=== PATIENT | female | born 1970 | race African-American/Black ===

== ENCOUNTER 2020-07-28 19:49 | Emergency (ER) | payer OTHER, SELFPAY ==
--- NOTE | ~2020-07-28 | XR_ITS ---
XR finger 1st LT min 2V DATE: 07/28/2020 20:13 INDICATION: Elbert a pop one week ago. Generalized left first digit pain. TECHNIQUE: 3 views COMPARISON: None FINDINGS: There is an approximately 7 x 16 mm bony density at the anterior aspect of the interphalang eal joint of the thumb, which may represent a small cortical avulsion fracture, subacute or old, in t he anterior base of the distal phalanx versus accessory ossicle. Recommend clinical correlation for p oint tenderness at this location. No other fracture or dislocation is evident.. IMPRESSION: Subacute or chronic avulsion fracture versus accessory ossicle at the anterior aspect of the interphalangeal joint of the thumb Reviewed, dictated and finalized at location A. TECHNICAL SALES CONSULTANT IMPRESSION: Subacute or chronic avulsion fracture versus accessory ossicle at t he anterior aspect of the interphalangeal joint of the thumb
[2020-07-28 19:53] VITALS: BP 149/83; PULSE 88; RESP 16; TEMP 36.8; O2SAT 98
--- NOTE | 2020-07-28 19:59 | ED.GENADULT ---
HPI - General Adult General Chief complaint: Extremity Injury, Upper Stated complaint: Injury to left thumb Time Seen by Provider: 07/28/20 19:54 Source: patient Mode of arrival: ambulatory Limitations: no limitations History of Present Illness HPI narrative: Patient is a 50-year-old female who presents to emergency department for evaluation of left thumb noting a week ago after lifting a trash can lid felt a pop in the thumb is since had aching pain worse with activity and movement patient denies other injury or complaints presents in no distress has been using a thumb splint Related Data Allergies Allergy/AdvReac Type Severity Reaction Status Date / Time No Known Allergies Allergy Verified 07/28/20 19:50 Review of Systems Review of Systems: All systems reviewed & are unremarkable except as noted in HPI and below PMFSH Past Medical History Medical History (Updated 07/28/20 @ 20:28 by Aidan Dennis PA-C) Hypertension Social History Social History (Updated 07/28/20 @ 20:00 by Aidan Dennis PA-C) Smoking status: Never smoker Exam Narrative: Exam Narrative: GENERAL: Well-appearing, well-nourished, and in no acute distress. HEAD: Normocephalic, atraumatic. EYES: PERRLA and EOMI. EXTREMITIES: Normal range of motion. No edema. Tenderness of the left thumb no deformity noted SKIN: Warm, dry, no rash. NEURO: No focal deficits. Alert and oriented x3. Neurovascularly intact. Capillary refill less than 2 seconds PSYCH: Normal mood and affect. Course Course Emergency Course: Patient with possible thumb fracture placed in thumb spica with orthopedic follow-up Vital Signs Vital signs: Vital Signs Temperature 98.2 F 07/28/20 19:53 Pulse Rate 88 07/28/20 19:53 Respiratory Rate 16 07/28/20 19:53 Blood Pressure 149/83 H 07/28/20 19:53 Pulse Oximetry 98 07/28/20 19:53 Temperature 98.2 F 07/28/20 19:53 Pulse Rate 88 07/28/20 19:53 Respiratory Rate 16 07/28/20 19:53 Blood Pressure 149/83 H 07/28/20 19:53 Pulse Oximetry 98 07/28/20 19:53 Medical Decision Making MDM Narrative Medical decision making narrative: Patients injury or pain is consistent with musculoskeletal etiology. No signs of neurological or vascular compromise on exam. Compartments and tisues are soft without signs of compartment syndrome. Pain is felt appropriate for further evaluation on an outpatient basis. Vital Signs Vital Signs: Vital Signs Temperature 98.2 F 07/28/20 19:53 Pulse Rate 88 07/28/20 19:53 Respiratory Rate 16 07/28/20 19:53 Blood Pressure 149/83 H 07/28/20 19:53 Pulse Oximetry 98 07/28/20 19:53 Temperature 98.2 F 07/28/20 19:53 Pulse Rate 88 07/28/20 19:53 Respiratory Rate 16 07/28/20 19:53 Blood Pressure 149/83 H 07/28/20 19:53 Pulse Oximetry 98 07/28/20 19:53 Discharge Plan Discharge Clinical Impression: Fracture of thumb Patient Disposition: Home, Self-Care Condition: Stable Instructions: Antibiotic Form, Thumb Fracture (ED) Additional Instructions: Follow-up with hand surgeon by phone first thing tomorrow to set up for reevaluation Wear splint with intermittent icing Return if symptoms worsen or concerns or any increase in redness swelling pain or fever over 100.5 Follow patient education sheets Only take medications as directed Prescriptions: New acetaminophen [Tylenol Arthritis Pain] 650 mg tablet extended release 650 mg PO Q12H PRN (Reason: pain) Qty: 7 RF: 0 Follow-up/Referrals: Kristyn,HEATHER Stiles [Primary Care Provider] - Juan Ramon Damian MD [Physician] - Stand Alone Forms: Work/School Release IP
== END 2020-07-28 21:12 | disposition home or self-care (01) ==
LOC: ANHED 20:03
PROVIDERS: Emergency Provider Emergency Medicine; PCP Registered Nurse
DX: S62.502A Fracture of unspecified phalanx of left thumb, initial encounter for closed fracture (principal); I10 Essential (primary) hypertension; X50.9XXA Other and unspecified overexertion or strenuous movements or postures, initial encounter
CPT/HCPCS: 29125; 73140; 99284; A4565

== ENCOUNTER 2020-08-19 13:38 | Emergency (ER) | payer OTHER, SELFPAY ==
[2020-08-19 14:36] VITALS: BP 159/93; PULSE 76; RESP 18; TEMP 36.9; O2SAT 100
--- NOTE | 2020-08-19 16:48 | ED.GENADULT ---
HPI - General Adult General Chief complaint: Dental/Oral Stated complaint: abcess to L lower jaw Time Seen by Provider: 08/19/20 16:31 Source: patient History of Present Illness HPI narrative: Patient is a 50 y/o female complaining of left lower dental pain and left jaw pain starting 2 days ago. She states that she was taking Amoxil prescribed her PCP. However, it's not helping. She rates her pain as 10/10 yesterday, but 6/10 today. She has no fever or chills. Related Data Home Medications Medication Instructions Recorded Confirmed amoxicillin 08/19/20 08/19/20 atenolol 08/19/20 chlorhexidine gluconate 08/19/20 hydrochlorothiazide 08/19/20 Allergies Allergy/AdvReac Type Severity Reaction Status Date / Time No Known Allergies Allergy Verified 08/19/20 16:22 Review of Systems Constitutional: Constitutional: Denies chills, Denies fever(s), Denies headache(s) and Denies weakness Eyes: Eyes: Denies blurry vision ENT: Reports dental pain, Denies headache(s) and Denies neck pain Cardiovascular: Cardiovascular: Denies chest pain and Denies dyspnea Respiratory: Respiratory: Denies cough and Denies dyspnea Gastrointestinal: Gastrointestinal: Denies abdominal pain, Denies diarrhea, Denies nausea and Denies vomiting Genitourinary: Genitourinary: Denies hematuria and Denies dysuria Musculoskeletal: Musculoskeletal: Denies back pain and Denies neck pain Neurologic: Denies headache(s) and Denies weakness [facility] Past Medical History Medical History Hypertension Social History Social History Smoking status: Never smoker Exam Const: General: no acute distress and well developed Orientation/consciousness: oriented to person, oriented to place, oriented to time and patient oriented x3 HENMT: Head: normocephalic Ears: external ears normal General nose exam: Normal external nose present Face and sinus: edema (jaw swelling) on the left Teeth and gingiva: poor dentition and other (left lower molar chipped tooth) Eyes: General: appearance normal, both eyes and all related structures Conjunctivae: conjunctivae normal Neck: Neck: normal visual inspection and full ROM Chest: Chest palpation & inspection: normal inspection of the chest and no tenderness Resp: Effort & Inspection: normal respiratory effort Auscultation: clear to auscultation bilaterally Cardio: Rate: regular rate Rhythm: regular rhythm GI: GI Palp: No abdominal tenderness and Yes Soft to palpation Skin: General skin exam: normal color and turgor normal Neuro: General: oriented to person, oriented to place, oriented to time and patient oriented x3 Cognition (Neuro): normal cognition Extrem: General: normal to inspection, full ROM and no pedal edema Psych: Appearance: grossly normal Mental Status: mental status grossly normal Affect: normal affect Course Vital Signs Vital signs: Vital Signs Temperature 36.9 C 08/19/20 14:36 Pulse Rate 76 08/19/20 14:36 Respiratory Rate 18 08/19/20 14:36 Blood Pressure 159/93 H 08/19/20 14:36 Pulse Oximetry 100 08/19/20 14:36 Temperature 36.9 C 08/19/20 14:36 Pulse Rate 76 08/19/20 14:36 Respiratory Rate 18 08/19/20 14:36 Blood Pressure 159/93 H 08/19/20 14:36 Pulse Oximetry 100 08/19/20 14:36 Medical Decision Making Vital Signs Vital Signs: Vital Signs Temperature 36.9 C 08/19/20 14:36 Pulse Rate 76 08/19/20 14:36 Respiratory Rate 18 08/19/20 14:36 Blood Pressure 159/93 H 08/19/20 14:36 Pulse Oximetry 100 08/19/20 14:36 Temperature 36.9 C 08/19/20 14:36 Pulse Rate 76 08/19/20 14:36 Respiratory Rate 18 08/19/20 14:36 Blood Pressure 159/93 H 08/19/20 14:36 Pulse Oximetry 100 08/19/20 14:36 Discharge Plan Discharge Clinical Impression: Toothache Patient Disposition: Home, Self-Care Condition: Sta
== END 2020-08-19 17:05 | disposition home or self-care (01) ==
PROVIDERS: Emergency Provider Emergency Medicine; PCP Registered Nurse
DX: K08.89 Other specified disorders of teeth and supporting structures (principal); I10 Essential (primary) hypertension
CPT/HCPCS: 99283

== ENCOUNTER 2021-08-14 19:27 | Emergency (ER) | payer OTHER, SELFPAY ==
--- NOTE | ~2021-08-14 | XR_ITS ---
EXAMINATION: XR chest 2V DATE: 08/14/2021 19:53 INDICATION: Left chest pain. TECHNIQUE: Frontal and lateral views of the chest were obtained. COMPARISON: None. FINDINGS: The chest demonstrates clear lungs without pneumonia, pleural effusion, or pneumothorax. Th e heart size is normal. IMPRESSION: 1. No acute cardiopulmonary disease. Reviewed, dictated and finalized at location E. WELDER
--- NOTE | 2021-08-14 19:30 | ECG_ITS ---
Measurements Intervals [place] Rate: 55 P: 40 MD: 180 QRS: 17 QRSD: 97 T: 15 QT: 373 QTc: 358 Interpretive Statements SINUS BRADYCARDIA BORDERLINE T WAVE ABNORMALITY- INFERIOR LEADS BASELINE ARTIFACT- I, II, III, AVR, V3-V4 BORDERLINE ECG Electronically Signed On 08-14-2021 20:47:36 PRE SALES TECHNICAL CONSULTANT by Jean Kapoor D.O.
[2021-08-14 19:34] VITALS: BP 171/87; PULSE 57; RESP 16; TEMP 36.4; O2SAT 100
[2021-08-14 20:13] VITALS: BP 156/82; PULSE 47; RESP 18; O2SAT 100
[2021-08-14] MEDS: ASPIRIN 81 MG CHEWABLE TABLET 324 MG PO (20:17)
[2021-08-14 20:18] LABS: Basophils Percent Auto 0.3 % (0.2-1.2); Eosinophils Absolute Auto 0.6 K/mm3 (0-0.3); Eosinophils Percent Auto 4.8 % (0-4.4); Hemoglobin 12.6 g/dL (12.0-15.0); Immature Granulocyte Absolute 0.04 K/mm3 (0.00-0.031); Immature Granulocyte Percent A 0.3 % (0-0.5); Lymphocytes Percent Auto 35.7 % (18.3-44.2); Mean Corpuscular HGB Conc 31.5 g/dl (32-36); Mean Corpuscular Volume 82.6 fl (80-100); Mean Platelet Volume 12.5 fl (7.4-10.4); Neutrophils Absolute Auto 6.6 K/mm3 (1.3-6.7); Neutrophils Percent Auto 50.9 % (45.5-73.1); Platelet Count Result 209 k/mm3 (150-375); Red Blood Count 4.84 M/mm3 (4.2-5.4); Red Cell Distribution Width 13.2 % (11.5-14.5); White Blood Count 12.9 K/mm3 (4.5-10.0)
[2021-08-14 20:27] LABS: Prothrombin Time 12.5 Seconds (11.1-14.7)
[2021-08-14 20:30] LABS: Alanine Aminotransferase 17 U/L (4-35); Albumin Level 4.2 g/dL (3.5-5.1); Alkaline Phosphatase 88 U/L (38-126); Anion Gap 7 mmol/L (8-16); Aspartate Amino Transferase 28 U/L (14-36); Bilirubin,Total 0.4 mg/dL (0.2-1.3); Blood Urea Nitrogen 8 mg/dL (7-17); Calcium 9.3 mg/dL (8.4-10.2); Carbon Dioxide 24 mmol/L (22-30); Chloride 109 mmol/L (98-107); Estimated CRCL calculation 68 ml/min; Estimated Glomerular Filt Rate > 60; Glucose 106 mg/dL (65-110); Lipase 236 U/L (23-300); Potassium 3.3 mmol/L (3.4-5.0); Sodium 140 mmol/L (137-145)
[2021-08-14 20:31] LABS: Partial Thromboplastin Time 34.3 SECONDS (22.3-36.8)
[2021-08-14 20:42] LABS: Troponin I < 0.012 ng/mL (0.000-0.034)
--- NOTE | 2021-08-14 20:56 | ED.GENADULT ---
HPI - General Adult General Chief complaint: Chest Pain Stated complaint: chest pain for 2 weeks Time Seen by Provider: 08/14/21 19:40 History of Present Illness HPI narrative: Patient is a 51-year-old female who presents ER with chest pain. Reports its been occurring for the last 3 to 4 weeks. She saw her PCP 2 weeks ago who ordered an EKG, chest x-ray, and outpatient stress test. Patient has not scheduled any of these test. She reports that pain across her anterior chest when she is lifting or pushing something. The last 15 minutes and go away. She has approximately 2 times a day. She has not had the pain in more than 24 hours. No fevers or chills or sweats. Unsure if it is improved with taking anti-inflammatories. No nausea/vomiting/cough. When asked if she is short of breath she says sometimes but cannot describe situation which she becomes dyspneic. Related Data Home Medications Medication Instructions Recorded Confirmed amoxicillin 08/19/20 08/19/20 atenolol 08/19/20 chlorhexidine gluconate 08/19/20 hydrochlorothiazide 08/19/20 Allergies Allergy/AdvReac Type Severity Reaction Status Date / Time No Known Allergies Allergy Verified 08/14/21 19:37 Review of Systems Review of Systems: All systems reviewed & are unremarkable except as noted in HPI and below Constitutional: Constitutional: Denies chills, Denies fever(s) and Denies weakness ENT: Denies nasal congestion and Denies sore throat Cardiovascular: Cardiovascular: Reports chest pain, Denies rapid heart rate and Denies radiating jaw, neck or arm pain Respiratory: Respiratory: Denies cough, Reports dyspnea and Denies wheezing Gastrointestinal: Gastrointestinal: Denies abdominal pain, Denies diarrhea, Denies nausea and Denies vomiting Musculoskeletal: Musculoskeletal: Denies arthralgias, Denies joint swelling and Denies muscle cramps PMFSH Past Medical History Medical History (Updated 08/14/21 @ 21:04 by Miguel Duong MD) Hypertension Surgical History Surgical History (Updated 08/14/21 @ 21:00 by Miguel Duong MD) No pertinent past surgical history Family History Family History (Updated 08/14/21 @ 21:00 by Miguel Duong MD) Father Acute myocardial infarction, Onset Age: 70 Social History Social History Smoking status: Never smoker Exam Narrative: GENERAL: Well-appearing, well-nourished, and in no acute distress. HEAD: Normocephalic, atraumatic. EYES: PERRL and EOMI. CHEST: Clear to auscultation. No respiratory distress. HEART: Regular rate and rhythm. No murmur heard. Normal peripheral pulses. ABDOMEN: Soft, nontender, nondistended EXTREMITIES: Normal range of motion. No edema. SKIN: Warm, dry, no rash. NEURO: Alert and oriented x3. PSYCH: Normal mood and affect. Course Vital Signs Vital signs: Vital Signs Temperature 97.6 F 08/14/21 19:34 Pulse Rate 57 L 08/14/21 19:34 Respiratory Rate 16 08/14/21 19:34 Blood Pressure 171/87 H 08/14/21 19:34 Pulse Oximetry 100 08/14/21 19:34 Temperature 97.6 F 08/14/21 19:34 Pulse Rate 47 L 08/14/21 20:13 Respiratory Rate 18 08/14/21 20:13 Blood Pressure 156/82 H 08/14/21 20:13 Pulse Oximetry 100 08/14/21 20:13 Medical Decision Making Vital Signs Vital Signs: Vital Signs Temperature 97.6 F 08/14/21 19:34 Pulse Rate 57 L 08/14/21 19:34 Respiratory Rate 16 08/14/21 19:34 Blood Pressure 171/87 H 08/14/21 19:34 Pulse Oximetry 100 08/14/21 19:34 Temperature 97.6 F 08/14/21 19:34 Pulse Rate 47 L 08/14/21 20:13 Respiratory Rate 18 08/14/21 20:13 Blood Pressure 156/82 H 08/14/21 20:13 Pulse Oximetry 100 08/14/21 20:13 Lab Data Result diagrams: 08/14/21 20:10 08/14/21 20:10 Labs: Lab Results 08/14/21 08/14/21 08/14/21 Range/Units 20:10 20:10 20:10 WBC Pending RBC Pending Hgb Pending
[2021-08-14 21:26] VITALS: BP 152/74; PULSE 50; RESP 16; O2SAT 100
== END 2021-08-14 21:27 | disposition home or self-care (01) ==
PROVIDERS: Emergency Medicine; Emergency Provider Emergency Medicine; PCP Registered Nurse
DX: R07.89 Other chest pain (principal); I10 Essential (primary) hypertension; R00.1 Bradycardia, unspecified; R94.31 Abnormal electrocardiogram [ECG] [EKG]
CPT/HCPCS: 36415; 71046; 80053; 83690; 84484; 85025; 85610; 85730; 93005; 99284; A9270

== ENCOUNTER 2022-06-29 16:46 | Observation (INO) | payer OTHER, SELFPAY ==
[2022-06-29] VITALS (27 sets, daily range): BP systolic 126–152; BP diastolic 63–101; PULSE 57–80; RESP 12–22; TEMP 36.2–36.9; O2SAT 97–100
--- NOTE | ~2022-06-29 | NM_ITS ---
EXAMINATION: NM jeannie stress w perfusion DATE: 06/30/2022 14:08 INDICATION: Chest pain TECHNIQUE: Rest images were obtained following intravenous administration of 9.4 mCi Tc99m tetrofosmi n (Myoview). The patient was infused intravenously with Lexiscan (Regadenoson). Then, 30.6 mCi Tc99m tetrofosmin (Myoview) was administered intravenously, and stress images were obtained. Data was recon structed into short axis and horizontal and vertical long axis SPECT images. Gated SPECT images were also obtained. COMPARISON: None. FINDINGS: There is no definite reversible or fixed perfusion abnormality to suggest ischemia or infar ction. There is normal left ventricular chamber size, wall motion and ejection fraction. Left ventr icular ejection fraction measures >70%. IMPRESSION: 1. Normal myocardial perfusion at rest and during stress. 2. Left ventricular ejection fraction measuring >70%. Reviewed, dictated and finalized at location A. HER EDUCATION DIRECTOR
--- NOTE | ~2022-06-29 | XR_ITS ---
EXAMINATION: XR chest 2V Exam Date/Time: 06/29/2022 17:25 STAFF TECHNOLOGIST HISTORY: chest pain left side into left arm Comparison: 08/14/2021. RESULT: Lines, tubes, and devices: None. Lungs and pleura: No focal consolidation, pneumothorax, or effusion. Chronic appearing bronchiolitic changes. Cardiomediastinal silhouette: Stable. Other: No acute osseous or upper abdominal finding. IMPRESSION: No acute cardiopulmonary process. Reviewed, dictated and finalized at location K. F TECHNOLOGIST
--- NOTE | 2022-06-29 16:52 | ECG_ITS ---
Measurements Intervals [place] Rate: 59 P: 38 NM: 157 QRS: 6 QRSD: 90 T: 30 QT: 360 QTc: 358 Interpretive Statements SINUS BRADYCARDIA NONSPECIFIC T-WAVE ABNORMALITY BORDERLINE ECG COMPARED TO ECG 08/14/2021 19:34:27 T-WAVE ABNORMALITY NOW PRESENT Electronically Signed On 06-29-2022 18:09:31 THREAT ANALYST by Negro Leon M.D.
[2022-06-29 17:16] LABS: Basophils Absolute Auto 0.1 K/mm3 (0.0-0.1); Basophils Percent Auto 0.3 % (0.2-1.2); Eosinophils Absolute Auto 0.3 K/mm3 (0-0.3); Eosinophils Percent Auto 1.7 % (0-4.4); Hematocrit 42.6 % (37.0-47.0); Hemoglobin 13.4 g/dL (12.0-15.0); Immature Granulocyte Absolute 0.07 K/mm3 (0.00-0.031); Immature Granulocyte Percent A 0.4 % (0-0.5); Lymphocytes Absolute Auto 4.31 K/mm3 (0.9-3.2); Lymphocytes Percent Auto 27.6 % (18.3-44.2); Mean Corpuscular HGB Conc 31.5 g/dl (32-36); Mean Corpuscular Hemoglobin 26.1 pg (26-34); Mean Platelet Volume 12.7 fl (7.4-10.4); Monocytes Absolute Auto 1.2 K/mm3 (0.1-0.6); Monocytes Percent Auto 7.5 % (2.6-8.5); Neutrophils Absolute Auto 9.7 K/mm3 (1.3-6.7); Neutrophils Percent Auto 62.5 % (45.5-73.1); Platelet Count Result 222 k/mm3 (150-375); Red Blood Count 5.13 M/mm3 (4.2-5.4); Red Cell Distribution Width 13.2 % (11.5-14.5); White Blood Count 15.6 K/mm3 (4.5-10.0)
[2022-06-29 17:25] LABS: INR 1.1; Prothrombin Time 13.3 Seconds (11.1-14.7)
[2022-06-29 17:26] LABS: Partial Thromboplastin Time 32.1 SECONDS (22.3-36.8)
[2022-06-29 17:29] LABS: Alanine Aminotransferase 23 U/L (6-35); Albumin Level 4.7 g/dL (3.5-5.1); Alkaline Phosphatase 89 U/L (38-126); Anion Gap 9 mmol/L (8-16); Aspartate Amino Transferase 32 U/L (14-36); Bilirubin,Total 0.9 mg/dL (0.2-1.3); Blood Urea Nitrogen 21 mg/dL (7-17); Carbon Dioxide 25 mmol/L (22-30); Chloride 107 mmol/L (98-107); Estimated CRCL calculation 78 ml/min; Estimated Glomerular Filt Rate > 60; Glucose 94 mg/dL (65-110); Lipase 79 U/L (23-300); Potassium 3.9 mmol/L (3.4-5.0); Sodium 141 mmol/L (137-145)
[2022-06-29 17:41] LABS: Troponin I < 0.012 ng/mL (0.000-0.034)
--- NOTE | 2022-06-29 19:14 | PC.NURSE ---
Patient report given to TEE Shin. All questions answered and care of patient transferred.
[2022-06-29 20:26] LABS: Troponin I < 0.012 ng/mL (0.000-0.034)
--- NOTE | 2022-06-29 20:41 | ED.CHESTPAIN ---
HPI - Chest Pain General Chief Complaint: Chest Pain Stated Complaint: chest pain Time Seen by Provider: 06/29/22 19:07 History of Present Illness HPI narrative: Patient is a 52-year-old female who presents ER with chest pain. Reports its been intermittent over the last year. She had seen her primary care doctor in July and they given her a referral to a manager store for stress test. Patient has been unable to schedule appointment. She follow-up with her primary care doctor again last month and they again issued her the referral. She reports in the last week her symptoms of change and that they are becoming more frequent and she is now having discomfort into her left shoulder with tingling in her left arm. 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 She reports they will last for approximately 10 minutes. Symptoms improved with resting. She also reports some occasional improvement in her left shoulder discomfort with Tylenol. She has known no known history of heart disease. She has no diaphoresis or nausea when this occurs. Related Data Home Medications Medication Instructions Recorded Confirmed atenolol 25 mg tablet 25 mg PO DAILY 08/19/20 06/30/22 atorvastatin 20 mg tablet 20 mg PO DAILY 06/30/22 06/30/22 cyclobenzaprine 10 mg tablet 10 mg PO BID 06/30/22 06/30/22 multivit with minerals-iron 18 1 tablet PO DAILY 06/30/22 06/30/22 mg-folic ac 400 mcg-vit K 25 mcg tablet (Adults Multivitamin) Allergies Allergy/AdvReac Type Severity Reaction Status Date / Time No Known Allergies Allergy Verified 08/14/21 19:37 Review of Systems Review of Systems: All systems reviewed & are unremarkable except as noted in HPI and below Constitutional: Constitutional: Denies chills, Denies fatigue and Denies fever(s) ENT: Denies nasal congestion and Denies sore throat Cardiovascular: Cardiovascular: Reports chest pain, Denies rapid heart rate and Reports radiating jaw, neck or arm pain Respiratory: Respiratory: Denies cough and Denies dyspnea Gastrointestinal: Gastrointestinal: Denies abdominal pain, Denies nausea and Denies vomiting Musculoskeletal: Musculoskeletal: Denies arthralgias, Denies joint swelling and Denies muscle cramps Comments: Left shoulder pain. Neurologic: Denies syncope and Denies headache(s) Comments: Paresthesias PMFSH Past Medical History Medical History (Updated 06/30/22 @ 03:42 by Miguel Duong MD) Hypertension Surgical History Surgical History (Updated 08/14/21 @ 21:00 by Miguel Duong MD) No pertinent past surgical history Family History Family History (Updated 08/14/21 @ 21:00 by Miguel Duong MD) Father Acute myocardial infarction, Onset Age: 70 Social History Social History Smoking status: Never smoker Alcohol intake: never Substance use: current Substance use type: does not use Lack of Transportation: No Lack of Food: Never True Current Housing: I Have Housing Concerned About Future Housing: No Difficulty Paying Gas/Electric Bills: No Difficulty Paying for Meds: No Currently Unemployed: No Education: Decline to Answer Difficulty w/ Childcare or Family Care: No Spiritual care concerns: No Exam Narrative: GENERAL: Well-appearing, well-nourished, and in no acute distress. HEAD: Normocephalic, atraumatic. EYES: PERRL and EOMI. CHEST: Clear to auscultation. No respiratory distress. HEART: Regular rate and rhythm. Normal peripheral pulses. ABDOMEN: Soft, nontender, nondistended. Back: Mild discomfort over the left trapezius without palpable spasm. No midline tenderness of the T/L-spine. Mild paraspinal right thoracic discomfort left side. EXTREMITIES: Normal range of motion. No edema. SKIN: Warm, dry, no rash. NEURO: Alert and oriented x3. PSYCH: Normal mood and affect. Course Course Emergency Course: Patient resting comfortably. Discus
[2022-06-29 22:04] LABS: Influenza A QL RT-PCR Negative (Negative); Influenza B QL RT-PCR Negative (Negative); SARS-CoV-2 RNA PCR Negative
--- NOTE | 2022-06-29 23:05 | PC.NURSE ---
IV infilrated. Attempted IV x3 sticks. Unable to obtain. Report given to Rupal OLIVEIRA
--- NOTE | 2022-06-29 23:21 | ADMGEN ---
This patient, Maddie Smith, was admitted to IMU Room 203-01. Patient/family oriented to hospital policies and general routines including ID bracelet, bed and alarms, visiting hours, pain management, procedures, bathroom and other care routines, personal items, smoking policy, room service/diet, and visiting hours. Information on how to activate the Rapid Response Team has been discussed. Patient/Family are encouraged to report perceived risks to care and to ask questions if they do not understand what they are told or what they should do.
[2022-06-30] VITALS (10 sets, daily range): BP systolic 108–133; BP diastolic 68–76; PULSE 55–103; RESP 16–23; TEMP 36.3–36.6; O2SAT 99–100
[2022-06-30 00:09] LABS: Troponin I < 0.012 ng/mL (0.000-0.034)
[2022-06-30] MEDS: HYDROcodone/acetaminophen (*CRX) 5-325 MG TABLET 1 TAB PO (08:45)
--- NOTE | 2022-06-30 10:08 | EST_ITS ---
Patient Info Name: Maddie Smith Age: 52 years : 1970 Gender: Female Ht: 62 in Wt: 229 lbs BSA: 2.19 m2 HR: 55 bpm BP: 113 / 54 mmHg Heart Rhythm: Sinus Rhythm Exam Date: 06/30/2022 1:13 PM Exam Location: [facility] Stress Patient Status: Inpatient Admit Date: 06/29/2022 Staff Ordering Physician: Negro Leon MD Attending Provider: Shahzad Burroughs MD Exercise Technologist: Lucy Soto CT Exercise Physician: Negro Leon MD Exam Type: CA stress jeannie w NM Study Info Indications R07.9 - Chest pain, unspecified A regadenoson stress test was performed. Summary 1. No abnormal ST/T wave changes with Lexiscan. 2. No arrhythmias were observed during the examination. 3. No chest discomfort with stress test. 4. Please correlate with nuclear medicine images, reported separately. Protocol: Lexiscan Stress ECG Details Stage: REST Duration (min): 1 min : 6 sec HR (bpm): 55 SBP (mmHg): 118 DBP (mmHg): 59 Stage: REST Duration (min): 7 min : 59 sec HR (bpm): 60 SBP (mmHg): 118 DBP (mmHg): 59 Stage: STAGE 1 Duration (min): 1 min : 0 sec HR (bpm): 95 SBP (mmHg): 113 DBP (mmHg): 54 Stage: RECOVERY Duration (min): 1 min : 0 sec HR (bpm): 88 SBP (mmHg): 113 DBP (mmHg): 54 Stage: RECOVERY Duration (min): 2 min : 0 sec HR (bpm): 86 SBP (mmHg): 113 DBP (mmHg): 54 Stage: RECOVERY Duration (min): 3 min : 0 sec HR (bpm): 78 SBP (mmHg): 134 DBP (mmHg): 59 Stage: RECOVERY Duration (min): 3 min : 6 sec HR (bpm): 76 SBP (mmHg): 134 DBP (mmHg): 59 Rest HR: 60 bpm Peak HR: 95 bpm Rest Sys BP: 118 mmHg Peak Sys BP: 134 mmHg Max Pred HR: 166 bpm % Max Pred HR: 57 % Target HR: 141 bpm Max RPP: 12,730 bpm*mmHg BP Response: Normal blood pressure response Termination Reason: Completed protocol Cardiac Symptoms: None Total Time: 1 min : 0 sec Rest Mcdonald BP: 59 mmHg Peak Mcdonald BP: 59 mmHg Total Dose: 0.4 mg Resting ECG Sinus bradycardia. Stress ECG No abnormal ST/T wave changes with Lexiscan. Arrhythmias No arrhythmias were observed during the examination. Report Signatures
--- NOTE | 2022-06-30 11:39 | PM.IMHP ---
H&P: HPI History of Present Illness Date/Time: Date of service:06/30/22 11:39 Short-stay history and physical summary: Chief Complaint: worsening chest and shoulder pain Narrative: Patient is a pleasant 52-year-old female with a past medical history significant hypertension, hyperlipidemia who presented to the emergency department with complaints of worsening left central chest pain radiating to her left shoulder and neck over the past 9 months. Patient states she would experience the symptoms large on a daily basis lasting 6-7 minutes then resolved. Chest pain described as a sharp pain left-sided that would radiate to her left shoulder and neck with associated tingling in her shoulder. She generally denies associated nausea vomiting diaphoresis or shortness of breath. She states more recently she had been experiencing more frequent and at times more intense episodes of chest pain off and on over the course of 2 hours. She denied clearly identified aggravating or relieving factors. 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 She denied associated exacerbation with deep breathing, coughing or certain movements. She would however note increased discomfort in her neck lying on her left side. She was told to follow-up with Cardiology and obtained a stress test many months ago but she failed to do so. She presented to the ER with same complaints of chest pain in August with negative troponin and unremarkable EKG. She has ruled out for myocardial infarction with serial negative enzymes and EKGs unremarkable without ischemic changes. She is currently pain-free and has no other specific complaints at this time. Imaging is unremarkable. She has no history of DVT/PE, bleeding complication, recent trauma, illnesses, fevers or chills. She denies any prior known history of CAD, myocardial infarction, CHF, JJ. She has been compliant with medications. She has no other complaints at this time and is asymptomatic. She denies orthopnea or PND. 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 She does admit to taking Tylenol which has helped and would give her some relief for several hours in her symptoms would return. Review of Systems Review of Systems: Remainder of the review of systems is otherwise negative aside from that noted in the HPI. All systems reviewed & are unremarkable except as noted in HPI and below Constitutional: Constitutional: Reports as per HPI and Reports no additional constitutional complaints Eyes: Eyes: Reports as per HPI and Reports no additional eye complaints ENT: Reports system reviewed and no additional complaints, except as documented and Reports as per HPI Cardiovascular: Cardiovascular: Reports as per HPI and Reports no additional cardiovascular complaints Respiratory: Respiratory: Reports as per HPI and Reports no additional respiratory complaints Gastrointestinal: Gastrointestinal: Reports as per HPI and Reports no additional gastrointestinal complaints Genitourinary: Genitourinary: Reports as per HPI Musculoskeletal: Musculoskeletal: Reports no additional musculoskeletal complaints and Reports as per HPI Integumentary/Breasts: Skin/Breast: Reports system reviewed and no additional complaints, except as docu and Reports as per HPI Neurologic: Reports system reviewed and no additional complaints, except as documented and Reports as per HPI Psychiatric: Psychiatric: Reports no additional psychiatric complaints and Reports as per HPI Endocrine: Endocrine: Reports no additional endocrine complaints and Reports as per HPI Hematologic/Lymphatic: Hematologic/Lymphatic: Reports no additional hematologic/lymphatic complaints and Reports as per HPI Allergic/Immunologic: Allergic/Immunolog
== END 2022-06-30 16:52 | disposition home or self-care (01) ==
LOC: ANHED 19:07 → ANHIMU 22:54
PROVIDERS: Family Medicine; Admitting Provider Internal Medicine Cardiovascular Disease; Emergency Provider Emergency Medicine; PCP Registered Nurse; Visit Provider Internal Medicine Cardiovascular Disease
DX: R07.9 Chest pain, unspecified (principal); M25.512 Pain in left shoulder; R20.2 Paresthesia of skin; I10 Essential (primary) hypertension; E78.2 Mixed hyperlipidemia; R00.1 Bradycardia, unspecified; M54.2 Cervicalgia; R94.31 Abnormal electrocardiogram [ECG] [EKG]; Z20.822 Contact with and (suspected) exposure to COVID-19; Z79.899 Other long term (current) drug therapy; Z82.49 Family history of ischemic heart disease and other diseases of the circulatory system
CPT/HCPCS: 36415; 71046; 78452; 80053; 83690; 84484; 85025; 85610; 85730; 87636; 93005; 93017; 99285; A9270; A9502; G0378; G0379; J2785

== ENCOUNTER 2024-07-30 14:21 | Emergency (ER) | payer BC, SELFPAY ==
[2024-07-30 14:26] VITALS: BP 131/64; PULSE 80; RESP 16; TEMP 36.9; O2SAT 100
[2024-07-30 14:59] LABS: EDCOVIDSCREEN Negative (Negative); EDINFLUASCREEN Negative (Negative); EDINFLUBSCREEN Negative (Negative)
--- NOTE | 2024-07-30 15:15 | ED.NAVMDI ---
HPI - Nausea/Vomiting/Diarrhea General Chief complaint: Nausea/Vomiting/Diarrhea Stated complaint: n/v/d Time Seen by Provider: 07/30/24 15:03 Source: patient and RN notes reviewed Mode of arrival: ambulatory Limitations: no limitations History of Present Illness HPI Narrative: Patient presents today complaining of nausea, vomiting, diarrhea, body aches, chills. Symptoms began last night. She vomited 6 times last night and twice today, last at 10:30 a.m. this morning. She had 5 episodes of loose diarrhea last night and 1 today. Denies blood or mucus in her stool. She has been able to keep down some fluids since her last vomiting episode. Denies abdominal pain, but does report some intermittent cramping. Denies fever. She has tried no [id number] medication for symptoms prior to arrival. States she works in a [employer]. Related Data Home Medications ?Medication ?Instructions ?Recorded ?Confirmed ?Last Taken ?Type atenolol 25 mg tablet 25 mg PO DAILY 08/19/20 06/30/22 Unknown History atorvastatin 20 mg tablet 20 mg PO DAILY 06/30/22 06/30/22 Unknown History cyclobenzaprine 10 mg tablet 10 mg PO BID 06/30/22 06/30/22 Unknown History multivit with minerals-iron 18 1 tablet PO DAILY 06/30/22 06/30/22 Unknown History mg-folic ac 400 mcg-vit K 25 mcg tablet (Adults Multivitamin) Allergies Allergy/AdvReac Type Severity Reaction Status Date / Time No Known Allergies Allergy Verified 07/30/24 14:43 Review of Systems Review of Systems: CONSTITUTIONAL: + body aches, chills EYES: Denies visual changes, redness, or discharge. ENT: Denies rhinorrhea, congestion, sore throat, or otalgia. CARDIOVASCULAR: Denies chest pain, palpitations, or edema. RESPIRATORY: Denies cough or dyspnea. GASTROINTESTINAL: Denies abdominal pain. + nausea, vomiting, diarrhea, abdominal cramping GENITOURINARY: Denies dysuria or hematuria. SKIN: Denies rash, itching, or wounds. MUSCULOSKELETAL: Denies back pain, joint pain, or myalgia. NEUROLOGIC: Denies headache, numbness, tingling, or weakness. PSYCH: Denies depression or anxiety. [facility] Past Medical History Medical History Mixed hyperlipidemia Hypertension Surgical History Surgical History No pertinent past surgical history Family History Family History Father Acute myocardial infarction, Onset Age: 70 Social History Social History Smoking status: Never smoker Alcohol intake: never Substance use: current Substance use type: does not use Lack of Transportation: No Lack of Food: Never True Current Housing: I Have Housing Concerned About Future Housing: No Difficulty Paying Gas/Electric Bills: No Difficulty Paying for Meds: No Currently Unemployed: No Education: Decline to Answer Difficulty w/ Childcare or Family Care: No Spiritual care concerns: No Comments At time of signature, I have reviewed and agree with nursing past medical, surgical, social and family history unless otherwise noted. Please see nursing chart for further information. There is no relevant family history pertinent to the presenting complaint Exam Narrative: GENERAL: Well-appearing, well-nourished, and in no acute distress. HEAD: Normocephalic, atraumatic. EYES: EOMI. No redness or drainage. Conjunctivae normal. ENT: Mucous membranes pink and moist. NECK: Normal AROM. CHEST: No respiratory distress. Clear to auscultation. HEART: Regular rate and rhythm. No murmur appreciated. Normal peripheral pulses. ABDOMEN: Soft, nontender, nondistended, normal active bowel sounds. EXTREMITIES: Normal range of motion. No edema. SKIN: Warm, dry, no rash. Capillary refill normal. Normal skin turgor. NEURO: No focal deficits. Alert and oriented x3. Gait steady. PSYCH: Normal affect. No signs of depression or anxiety. Course Course Level of Care: Express Care Visit Vital Signs Vital signs: Vital Signs Temperature 98.5 F 07/30/24 14:26 Pulse Rate 80 07/30/24 14:26 Respiratory Rate 16 07/30/24 14:26 Blood Pressure 131/64 07/30/24 14:26 Pulse Oximetry 100 07/30/24 14:26 Oxygen Delivery Room Air 07/30/24 14:26 Temperature 98.5 F 07/30/24 14:26 Pulse Rate 80 07/30/24 14:26 Respiratory Rate 16 07/30/24 14:26 Blood Pressure 131/64 07/30/24 14:26 Pulse Oximetry 100 07/30/24 14:26 Oxygen Delivery Room Air 07/30/24 14:26 Reviewed MDM - Nausea/Vomiting/Diarrhea MDM Narrative Medical decision making narrative: Influenza and COVID-19 negative. Symptoms have improved with dose of Zofran here at [facility] today. She is taking fluids by mouth without problems. Prescription of Zofran sent pharmacy. Symptoms likely viral in etiology. Discussed [id number] medication use and duration of illness. Anticipatory guidance given. ED precautions given. Differential Diagnosis Differential diagnosis: Likely food poisoning, gastroenteritis, dehydration and other (Viral syndrome) Lab Data Attestation: I reviewed the patient's lab results. Labs: Lab Results 07/30/24 Range/Units 14:40 POC Influenza A Ag Negative (Negative) POC Influenza B Ag Negative (Negative) POC SARS CoV-2 Ag Negative (Negative) Critical Care Time Critical Care Time Critical Care Time: No Discharge Plan Discharge Clinical Impression: Nausea vomiting and diarrhea Patient Disposition: Home, Self-Care Condition: Stable Instructions: Acute Nausea and Vomiting (DC), Acute Diarrhea (ED) Additional Instructions: Your influenza and COVID-19 tests are negative today. Your symptoms are likely due to a virus and should resolve on their own within a week. Take the Zofran as needed for nausea and vomiting. Rest and drink plenty of fluids. If you are unable to keep down fluids, even with the medication, or you notice blood or mucus in your stool, please go to the ER immediately for further evaluation and treatment. Your blood pressure was elevated above 120/80 today at Urgent Care. This puts you above the threshold for follow up. Please schedule a followup visit with your personal physician as soon as possible, for further evaluation and treatment. Even blood pressure exceeding 120/80 may indicate pre-hypertension. Patient Language: Niuean Prescriptions: New ondansetron 8 mg tablet,disintegrating 8 mg PO Q4-6H PRN (Reason: nausea and vomiting) Qty: 20 0RF No Action atenolol 25 mg tablet 25 mg PO DAILY cyclobenzaprine 10 mg tablet 10 mg PO BID atorvastatin 20 mg tablet 20 mg PO DAILY Adults Multivitamin 18 mg iron-400 mcg-25 mcg Tablet 1 tablet PO DAILY ibuprofen 400 mg tablet 400 mg PO TID Qty: 15 0RF Follow-up/Referrals: Kristyn,HEATHER Stiles [Primary Care Provider] - Stand Alone Forms: Work/School Release IP Time of Disposition: 15:40
[2024-07-30] MEDS: ONDANSETRON HCL ODT 4 MG TABLET 8 MG SUBLINGUAL (15:16)
== END 2024-07-30 15:49 | disposition home or self-care (01) ==
PROVIDERS: Emergency Provider Nurse Practitioner; PCP Registered Nurse
DX: R11.2 Nausea with vomiting, unspecified (principal); R19.7 Diarrhea, unspecified; Z20.822 Contact with and (suspected) exposure to COVID-19; I10 Essential (primary) hypertension; E78.2 Mixed hyperlipidemia
CPT/HCPCS: 87426; 87804; 99213; A9270; G0463